=== PATIENT | female | born 1970 | race Caucasian/White ===

== ENCOUNTER 2021-11-21 10:50 | Emergency (ER) | payer OTHER ==
[2021-11-21 11:14] VITALS: BP 121/72; PULSE 83; O2SAT 90
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
[2021-11-21 13:04] LABS: INR 1.06 (0.8-3.0); PROTIME 11.2 SECONDS (9.4-12.5); PTT 27.6 SECONDS (25.1-36.5)
== END 2021-11-21 12:39 | disposition home or self-care (01) ==
LOC: ED 10:50
DX: S50.02XA Contusion of left elbow, initial encounter (principal); V49.9XXA Car occupant (driver) (passenger) injured in unspecified traffic accident, initial encounter; M25.522 Pain in left elbow; I10 Essential (primary) hypertension; Z79.899 Other long term (current) drug therapy
CPT/HCPCS: 36415; 73080; 85379; 85610; 85730; 93971; 99284

== ENCOUNTER 2022-09-22 12:18 | Emergency (ER) | payer OTHER ==
[2022-09-22] MEDS ORDERED: NORVASC 5 MG PO ONE (12:28)
[2022-09-22] MEDS ORDERED: ARZOL Silver Nitrate Applicator TP ONE (12:32)
--- NOTE | 2022-09-22 12:40 | ERPHSYRPT ---
- History of Present Illness Time Seen by Provider: 09/22/22 12:35 Source: patient Exam Limitations: no limitations Physician History: Patient is a 41-year-old white female who has had epistaxis 3 episodes in the last 48 hours. Most the time she wakes up at night with epistaxis. She states that she had an episode of similar type epistaxis on the left side several years ago and was cauterized with silver nitrate and has had no more trouble and request silver nitrate being used again. At present she has no active bleeding. Timing/Duration: intermittent Severity: moderate ENT Location: nose Prearrival Treatment: squeezing nostrils Modifying Factors: Improves With: nothing Associated Symptoms: denies symptoms Allergies/Adverse Reactions: hydrocodone bitartrate [From Vicodin] Allergy (Verified 09/22/22 12:41) Nausea and Vomiting Home Medications: Metoprolol Tartrate 25 mg [Lopressor 25MG Tab] 25 mg PO BID 11/21/21 [History] Hx Tetanus, Diphtheria Vaccination/Date Given: No (UNKNOWN) Hx Influenza Vaccination/Date Given: No Hx Pneumococcal Vaccination/Date Given: No Travel Risk - Vaccine Status Have you recieved a Covid-19 vaccination: Yes Crime Scene Technician: Moderna - Vaccination Dates Date of 2cond Vaccination (if applicable): none - Review of Systems Constitutional: No Fever, No Chills Eyes: No Symptoms Ears, Nose, & Throat: Epistaxis Respiratory: No Cough, No Dyspnea Cardiac: No Chest Pain, No Edema, No Syncope Abdominal/Gastrointestinal: No Abdominal Pain, No Nausea, No Vomiting, No Diarrhea Genitourinary Symptoms: No Dysuria Musculoskeletal: No Back Pain, No Neck Pain Skin: No Rash Neurological: No Dizziness, No Focal Weakness, No Sensory Changes Psychological: No Symptoms Endocrine: No Symptoms All Other Systems: Reviewed and Negative - Past Medical History Pertinent Past Medical History: Yes Cardiac History: Hypertension Female Reproductive Disorders: Endometriosis, Other - Past Surgical History Past Surgical History: Yes Gastrointestinal: Exploratory Laparoscopy - Social History Smoking Status: Never smoker Exposure to second hand smoke: No Drug Use: none Patient Lives Alone: No - Nursing Vital Signs Nursing Vital Signs: Initial Vital Signs Temperature 96.7 F 09/22/22 12:31 Pulse Rate 80 09/22/22 12:31 Respiratory Rate 18 09/22/22 12:31 Blood Pressure 154/114 09/22/22 12:31 O2 Sat by Pulse Oximetry 97 09/22/22 12:31 Pain Scale Pain Intensity 7 - Physical Exam General Appearance: mild distress, alert Eye Exam: bilateral eye: PERRL, EOMI Ear Exam: bilateral ear: auricle normal, canal normal, TM normal Nasal Exam: sinus tenderness (Clots seen with dried blood on the anterior septum on the right side) Throat Exam: pharynx normal, moist mucus membranes, No tonsillar exudate Neck Exam: supple Cardiovascular/Respiratory Exam: normal breath sounds, regular rate/rhythm Abdominal Exam: non-tender, soft Neurologic Exam: alert, oriented x 3, sensation nml, No motor deficits Skin Exam: normal color, warm, dry SpO2: 97 - Course Nursing assessment & vital signs reviewed: Yes Ordered Tests: Medication Summary Discontinued Medications Generic Name Dose Route Start Last Admin Trade Name Ame PRN Reason Stop Dose Admin Amlodipine Besylate 5 mg 09/22/22 12:28 09/22/22 12:51 Amlodipine Besylate 5 Mg Tablet PO 09/22/22 12:29 5 mg STAT ONE Administration Amlodipine Besylate Confirm 09/22/22 12:51 Amlodipine Besylate 5 Mg Tablet Administered 09/22/22 12:52 Dose 5 mg .ROUTE .STK-MED ONE Silver Nitrate Confirm 09/22/22 12:32 Silver Nitrate 1 Pkt Each Administered 09/22/22 12:33 Dose 1 pkt TP .STK-MED ONE - Progress Progress: improved Progress Note: 09/22/22 12:40 The right anterior septum was cauterized with silver nitrate and patient was observed.No further bleeding noted during period of observation. 09/22/22 13:05 Medical Desision Making - Risk of complications Minimal Risk: Minimal risk of morbidity - Departure Departure Disposition: Home Clinical Impression: Epistaxis Condition: Stable Critical Care Time: No Referrals: CL RAIN [Primary Care Provider] - Follow up/PCP as directed Instructions: Nosebleeds (DC)
[2022-09-22] MEDS ORDERED: NORVASC 5 MG ONE (12:51)
[2022-09-22 13:13] VITALS: BP 158/106; PULSE 72; O2SAT 98
== END 2022-09-22 13:14 | disposition home or self-care (01) ==
LOC: ED 12:18
DX: R04.0 Epistaxis (principal); I10 Essential (primary) hypertension; Z79.899 Other long term (current) drug therapy
CPT/HCPCS: 99281; A9270-GY

== ENCOUNTER 2022-09-23 09:35 | Emergency (ER) | payer OTHER ==
--- NOTE | 2022-09-23 09:43 | ERPHSYRPT ---
- History of Present Illness Time Seen by Provider: 09/23/22 09:43 Source: patient Exam Limitations: no limitations Physician History: This is a 51-year-old overweight white female patient has history of hypertension and recurrent nosebleeds. Patient was seen in our emergency department on 09/22/2022 for the same episodes. In the last 48 hours she had 4 episodes of intermittent nosebleeds. They seem to occur at night. Patient has no bleeding or clotting disorders. She is not on any anticoagulation therapy or aspirin. She has no liver disease. Yesterday, she had dried blood but no active bleeding. Examination by the physician in the emergency department rev ealed a small reddened area in the nasal symptom which was cauterized with a silver nitrate stick. Patient was sent home and told to not use any Garry- Synephrine or constricting agents for 48 hours. Patient returns today to the emergency department because she had an episode of nosebleed at home during the night. She arrives to the emergency department without any active bleeding but does have dried blood in her right nostril in their area. Timing/Duration: day(s) (3) Severity: mild Associated Symptoms: denies symptoms Allergies/Adverse Reactions: hydrocodone bitartrate [From Vicodin] Allergy (Verified 09/23/22 09:44) Nausea and Vomiting Home Medications: Metoprolol Tartrate 25 mg [Lopressor 25MG Tab] 25 mg PO BID 11/21/21 [History] Hx Tetanus, Diphtheria Vaccination/Date Given: No (UNKNOWN) Hx Influenza Vaccination/Date Given: No Hx Pneumococcal Vaccination/Date Given: No Travel Risk - International Travel Have you traveled outside of the country in past 3 weeks: No - Coronavirus Screening Are you exhibiting any of the following symptoms?: No Close contact with a COVID-19 positive Pt in past 14-21 Days: No - Vaccine Status Have you recieved a Covid-19 vaccination: Yes Second Worker: Moderna - Vaccination Dates Date of 2cond Vaccination (if applicable): none - Review of Systems Constitutional: No Symptoms Eyes: No Symptoms Ears, Nose, & Throat: Epistaxis (No active bleeding at this time) Respiratory: No Symptoms Cardiac: No Symptoms Abdominal/Gastrointestinal: No Symptoms Genitourinary Symptoms: No Symptoms Musculoskeletal: No Symptoms Skin: No Symptoms Neurological: No Symptoms Psychological: No Symptoms Endocrine: No Symptoms Hematologic/Lymphatic: No Symptoms Immunological/Allergic: No Symptoms All Other Systems: Reviewed and Negative - Past Medical History Pertinent Past Medical History: Yes Cardiac History: Hypertension Female Reproductive Disorders: Endometriosis, Other - Past Surgical History Past Surgical History: Yes Gastrointestinal: Exploratory Laparoscopy - Social History Smoking Status: Never smoker Exposure to second hand smoke: No Drug Use: none Patient Lives Alone: No - Nursing Vital Signs Nursing Vital Signs: Initial Vital Signs Temperature 98.0 F 09/23/22 09:48 Pulse Rate 84 09/23/22 09:48 Respiratory Rate 18 09/23/22 09:48 Blood Pressure 160/98 09/23/22 09:48 O2 Sat by Pulse Oximetry 97 09/23/22 09:48 Pain Scale Pain Intensity 0 - Physical Exam General Appearance: no apparent distress, alert, anxiety, obese Eye Exam: PERRL/EOMI, eyes nml inspection Ears, Nose, Throat Exam: other (Dried blood right nostril and right nare without active bleeding present) Neck Exam: normal inspection, non-tender, supple, full range of motion Respiratory Exam: airway intact, No chest tenderness, No respiratory distress Gastrointestinal/Abdomen Exam: No tenderness Pelvic Exam: not done Rectal Exam: not done Back Exam: normal inspection, normal range of motion, No CVA tenderness, No vertebral tenderness Extremity Exam: normal inspection, normal range of motion, pelvis stable Neurologic Exam: alert, oriented x 3, cooperative, policy writer sales II-XII nml as tested, normal mood/affect, nml cerebellar function, nml station & gait, sensation nml Skin Exam: normal color, warm, dry Lymphatic Exam: No adenopathy SpO2 Interpretation: normal O2 Delivery: Room Air - Course Nursing assessment & vital signs reviewed: Yes - Progress Progress: unchanged Progress Note: 09/23/22 10:05 This patient's medical issue is 1 of low complexity. The level of complexity and the work-up performed is based on review of the patient's past medical history, review of the patient's medication list, review of the patient's drug allergy list and physical findings on examination as well as history of present illness. The patient does not require any work-up at this time. She is not actively bleeding. There is dried blood present at the right nostril. The patient will be discharged to home with instructions to use 2 to 3 drops of Garry- Synephrine right nostril followed by placement of a nasal clip/clamp for 20 to 30 minutes. She can do this every 4 hours while awake. If this is insufficient then she may return to this emergency department, likely for the placement of a Rhino Rocket. This was described with the patient. Patient does not want a Rhino Rocket at this time. I do not think she is in need of 1. She may also return to be evaluated at a different emergency department that has ear nose and throat on staff. We did contact ear nose and throat physician office and make an appointment on November 03, 2022. Counseled pt/family regarding: diagnosis, need for follow-up Medical Desision Making - Diagnostic Testing Diagnostic test were ordered, analyzed, and reviewed by me: No - Risk of complications Low Risk: Low risk of morbidity from additional dx testing or treatment - Departure Departure Disposition: Home Clinical Impression: Epistaxis Condition: Stable Critical Care Time: No Referrals: CL RAIN [Primary Care Provider] - Follow up/PCP as directed Additional Instructions: Use the Garry-Synephrine drops as instructed if nosebleed is present. Place the nasal clamp on nostrils for 20 to 30 minutes after the spray. Keep your appointment with jewel bearing polisher that was made for you on November 03, 2022. If there is acute nosebleed that is not stopped by the above method, may return to an emergency department for further evaluation and management as discussed.
[2022-09-23 09:49] VITALS: O2SAT 97
[2022-09-23] MEDS ORDERED: NEOSYNEPHRINE 0.5% NASAL SPRAY/DROPS NS ONE (10:09)
[2022-09-23] MEDS ORDERED: NEOSYNEPHRINE 0.5% NASAL SPRAY/DROPS ONE (10:15)
[2022-09-23 10:36] VITALS: BP 129/97; PULSE 72
== END 2022-09-23 10:36 | disposition home or self-care (01) ==
LOC: ED 09:35
DX: R04.0 Epistaxis (principal); I10 Essential (primary) hypertension; Z79.899 Other long term (current) drug therapy
CPT/HCPCS: 99281; A9270-GY